=== PATIENT | male | born 1960 | race Caucasian/White ===

== ENCOUNTER → 2017-12-07 | Outpatient (CLI) | payer OTHER ==
[~2017-12-07] MED LIST: BARIUM SULFATE 148 GM POWDER ONE; BARIUM SULFATE 176 GM BTL PO ONE; BARIUM SULFATE 240 ML ORAL SUS (NECTAR) ONE; BARIUM SULFATE 340 GM POWD ONE
--- NOTE | 2017-12-07 14:31 | RADIOLOGY IMAGING REPORT ---
FACILITY: [facility] PATIENT NAME: Andres Ramirez : 1960 MR: [id number] V: [id number] EXAM DATE: [id number] ORDERING PHYSICIAN: KOLTON BARNES TECHNOLOGIST: Location: [facility] [place] Patient: Andres Ramirez : 1960 Visit/Account:[id number] Date of Sevice: 12/07/2017 Exam type: ESOPH VIDEO SWALLOWING History: Pharyngeal dysphasia status post C-spine fusion Comparison: None. Findings: The video esophagram is performed by the speech pathologist. Fluoroscopic assistance was provided. The patient received various liquids and food substances. Please see the speech pathologist report f or complete details. The fluoroscopy dose area product was 672.65 micro-Kohli per meter squared IMPRESSION: 1. As above Report Dictated By: Maira Coats MD at 12/07/2017 2:25 PM Report E-Signed By: Maira Coats MD at 12/07/2017 2:26 PM WSN:[email or web address]
--- NOTE | 2017-12-09 14:01 | SLP MODIFIED BARIUM SWALLOW ---
Speech Language Pathology Modified Barium Swallow Evaluation (MBS) Report Date of Evaluation: 12-07-2017 Patient Name: Andres Ramirez Patient : 1960 Physician: Sang Ackerman MD Clinician: Alpa Briggs M.S., CCC-[employer] BACKGROUND The patient is a 57 year old male. He was referred for an MBS by his physician to assess swallow structure and function as indicated by s/s of oral and pharyngeal dysphagia including lingual residue, coughing/choking with foods and liquids, and constant globus sensation. He denies pain with swallow. A bedside swallow evaluation at the [facility] [place] [place] resulted in a recommendation for an MBS. . He has experienced several work related injuries to his back and neck. Onset of dysphagia s/s began following a cervical fusion in February of 2017. In addition, the patient reports difficulty breathing when supine, post operative. 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 Oxygen Supplementation: No Level of Consciousness: Non altered Cognitive/Linguistic: intact Orientation: x3 Language: -expressive: nonaphasic -receptive: nonaphasic Speech: -non-apraxic -non-dysarthric Voice -Dysphonia:reports changes following cervical fusion -Nasal emission: No -Hypernasality: No -Wet Vocal Quality: Not witnessed during the MBS however [facility] student clinicians report witnessing wet vocal quality following food and liquid trials. Pain with Swallow: Denies MODIFIED BARIUM SWALLOW In conjunction with radiology, lateral view with trials of the following consistencies: nectar thick and thin barium liquid (noncarbonated), pureed, mechanical soft, and regular food consistencies, and a 1cm barium pill. ORAL STAGE Thin Liquids: no evidence of dysphagia . WNL [place] Thick Liquids: no evidence of dysphagia. WNL. Pureed Foods: no evidence of dysphagia. WNL. Mechanical Soft Foods: extended mastication time with small bites. Pt reports these techniques assist with deglutition. Regular Foods: as with mechanical soft foods. PHARYNGEAL STAGE Thin Liquid: no evidence of dysphagia WNL. [place] Thick Liquids: no evidence of dysphagia. WNL. Pureed Food: no evidence of dysphagia. WNL Mechanical Soft Foods: no evidence of dysphagia. WNL Regular Food Consistency: no evidence of dysphagia. WNL Penetration/Aspiration Scale*: All trialed foods and liquids: Score of 1= Contrast does not enter airway *(Rosenbek et al. 1996) ESOPHAGEAL STAGE Peristaltic movement appears to be WNL Cervical Esophagus: mild dysphagia. Intermittent cough/choking with this consistency. Coughing resulted in regurgitation of material from below the UES at approximately C6, C7 into the oral cavity which pt then re-swallowed. Coughing/choking then resolved. Regular Food Consistency: as with mechanical soft foods Thoracic Esophagus: Materials witnessed clearing from upper/mid/lower thoracic esophagus WNL. BARIUM PILL: Mild delay in mid esophagua. Cleared with cued second liquid swallow. SUMMARY Aspiration Risk: Mildly elevated d/t coughing/choking and regurgitation of foods through the pharynx into the oral cavity. 1.Dysphagia Severity Rating Scale (Gramigna, 2006; Mariaelena et. al., 1990): 2; Mild dysphagia: oropharyngeal dysphagia present which has the potential to be managed by specific swallow suggestions (follow foods with liquid when appropriate ie. when pt is not coughing). Slight modification in consistency of diet may be indicated (wet foods, small bites). RECOMMENDATIONS 1. Speech Therapy: 2-3x week for patient compensatory technique education and dysphagia therapy program to address the above described concerns with possible focus on cricopharyngeal function. 2. Continue with small bites, extended mastication, encourage wet foods, encourage alternating foods/liquids when possible but with caution d/t aspiration risk if pt begins coughing. 3. Second liquid swallow with pills to reduce delayed esophageal clearance. Thank you for this referral. Please call [phone] to contact the [employer]. Alpa Briggs M.S., CCC-[employer] [facility] Attention: Lluvia Piña M.S., CCC-[employer] [facility]
== END ==
LOC: RAD 00:19
PROVIDERS: ATTEND Orthopaedic Surgery Orthopaedic Surgery of the Spine
DX: R13.12 Dysphagia, oropharyngeal phase (principal)
CPT/HCPCS: 74230